=== PATIENT | male | born 1990 | race Caucasian/White ===

== ENCOUNTER 2018-06-15 07:06 | Emergency (ER) | payer OTHER, SELFPAY ==
[2018-06-15 07:18] VITALS: BP 132/74; PULSE 77; RESP 16; TEMP 36.8; O2SAT 95
--- NOTE | 2018-06-15 07:35 | ED.GENADUL_ITS ---
Discharge Plan Disposition Patient Disposition: HOME Condition: Stable Discharge Details Chief Complaint: Sorethroat Clinical Impression: Strep pharyngitis, Mononucleosis ED Provider: Priyanka Lopez Home Meds and New Rx's Prescriptions: New azithromycin [Zithromax] 500 mg tablet 500 mg PO DAILY 4 Days Qty: 4 RF: 0 Discharge Instructions Instructions: Pharyngitis (ED) Additional Instructions: Alternate Tylenol and Motrin as needed and directed for pain. Drink plenty of fluids and get plenty of rest. Use Chloraseptic throat spray, Sucrets, and gargle with salt water to help with pain. Follow-up with your primary care doctor in 1 week for reevaluation. Return immediately to the emergency department any worsening or new concerning symptoms. Stand Alone Forms: School Release, Work Release Discharge Data Discharge Physician: Priyanka Lopez Medical Decision Making 27-year-old male who presents with sore throat for the past 5 days. Also complained of headache, nausea, vomiting x1, malaise and bodyaches. Vitals within normal limits. Patient appears nontoxic. There is bilateral tonsillar edema, erythema and exudates, slightly worse on right but no evidence of abscess. Bilateral anterior cervical lymphadenopathy. Uvula midline. No submandibular swelling. No trismus. Lungs clear to auscultation. No hepatosplenomegaly. Differential diagnosis includes strep pharyngitis versus mono. Will obtain a rapid strep and mono screen. Will give a dose of Decadron p.o. and motrin. 0810 --rapid strep positive. Patient is allergic to penicillin. Dose of Zithromax given here and prescription for home. 0822 --mono screen positive. Patient instructed on the importance of fluids and rest. Instructed to continue Tylenol and Motrin as needed and directed. Follow-up with primary care doctor next week for reevaluation and to return here if worse immediately if worse with any signs of worsening throat pain, fever or inability to tolerate p.o. Lab Data Lab results reviewed: Yes I reviewed the patient's lab results. Laboratory Tests Range/Units 06/15/18 07:59 Monoscreen (Negative) Positive Rapid strep positive HPI General Mode of arrival: ambulatory . Date/Time Provider Initiated Documentation: 06/15/18 07:32 . Limitations to Documentation: no limitations . Information obtained by: patient . HPI Narrative: Patient is a 27-year-old male who presents with sore throat for the past 5 days. Patient admits to difficulty swallowing. Pain worse on right side. Patient does also admit to occasional cough and vomited once last night. He also complains of headache and intermittent nausea. Patient denies any known fever or neck pain. States his last dose of ibuprofen was last night. Related Data Home Medications Medication Instructions Recorded Confirmed azithromycin [Zithromax] 500 mg PO DAILY 4 Days #4 tab 06/15/18 Previous Rx's Medication Instructions Recorded azithromycin [Zithromax] 500 mg PO DAILY 4 Days #4 tab 06/15/18 Allergies Allergy/AdvReac Type Severity Reaction Status Date / Time Penicillins AdvReac Unverified 06/15/18 07:21 General Stated Complaint: Sorethroat LUBA: 3 Review of Systems Review of Systems All systems reviewed & are unremarkable except as noted in HPI and below Constitutional Reports as per HPI, Denies chills, Denies fever(s), Reports malaise and Reports weakness Eyes Denies blurry vision ENT Denies dizziness, Reports sore throat and Denies throat swelling Cardiovascular Denies chest pain and Denies dyspnea Respiratory Reports cough and Denies dyspnea Gastrointestinal Denies abdominal pain, Denies diarrhea, Reports nausea and Denies vomiting Genitourinary Denies hematuria and Denies dysuria Musculoskeletal Denies back pain and Denies numbness Integumentary/Breasts Denies lesions and Denies rash Neurologic Denies dizziness, Denies numbness and Reports weakness Allergic/Immunologic Denies throat swelling PFSH Medical History Heart murmur (Acute) Social History Smoking/Tobacco Use Status: Former Tobacco Use alcohol intake: current alcohol intake frequency: holidays/special occasions only substance use type: marijuana Exam Const General: cooperative and healthy appearing Orientation: alert and awake HENMN Head: normal to inspection Ears: hearing grossly normal bilaterally, external ears normal and TM's normal bilaterally General nose exam: external nose normal Face and sinus: normal facial exam and sinuses nontender Mouth: oral mucosae normal Teeth and gingiva: dentition normal Throat: posterior oropharynx abnormal Eyes General: appearance normal, both eyes and all related structures Eyelids: eyelids normal Pupils: PERRL EOM: EOM intact bilaterally Neck Neck: normal visual inspection and lymphadenopathy bilateral anterior cervical tender Lymphatic: no lymphadenopathy noted Chest Chest: normal inspection of the chest Resp Effort & Inspection: normal respiratory effort and able to speak in complete sentences Auscultation: clear to auscultation bilaterally Cardio Rate: regular rate Rhythm: regular rhythm GI Inspection: normal to inspection Palpation: soft, not firm, no guarding, no hepatosplenomegaly, no masses and nontender Auscultation: normal bowel sounds Skin General skin exam: no rashes or lesions noted Neuro General: alert and awake Cognition: normal cognition Speech: speech normal Gait: normal gait Motor: muscle tone normal throughout Sensory Exam: no sensory deficits noted Extrem General: normal to inspection, full ROM, normal capillary refill and no edema Psych Appearance: grossly normal Mental Status: mental status grossly normal Speech and Movement: speech and movement normal Affect: normal affect Thought Process: normal Course Vital Signs Temperature 98.2 F 06/15/18 07:18 Pulse 77 06/15/18 07:18 Respiratory Rate 16 06/15/18 07:18 Blood Pressure 132/74 06/15/18 07:18 Pulse Oximetry 95 06/15/18 07:18 Temperature 98.2 F 06/15/18 07:18 Temperature Source Temporal Artery Scan 06/15/18 07:18 Pulse 77 06/15/18 07:18 Respiratory Rate 16 06/15/18 07:18 Respiratory Effort Non-Labored 06/15/18 07:20 Blood Pressure 132/74 06/15/18 07:18 Pulse Oximetry 95 06/15/18 07:18 Oxygen Delivery Method Room Air 06/15/18 07:18 Oxygen Flow Rate 0 06/15/18 07:18 Pain Level 5 06/15/18 07:18
[2018-06-15] MEDS: Dexamethasone 10 MG/ML VIAL PO (07:49)
[2018-06-15] MEDS: Ibuprofen 600 MG TAB PO (07:50)
[2018-06-15 08:18] LABS: Mono Screening POSITIVE (Negative)
[2018-06-15] MEDS: Azithromycin 250 MG TAB 500 MG PO (08:34)
== END 2018-06-15 08:40 | disposition home or self-care (01) ==
LOC: ER 08:44
PROVIDERS: Emergency Provider Physician Assistant
DX: J02.0 Streptococcal pharyngitis (principal); B27.90 Infectious mononucleosis, unspecified without complication; R59.0 Localized enlarged lymph nodes
CPT/HCPCS: 36415; 87880; 99283; 86308; 87081; J1100